=== PATIENT | male | born 1960 | race Caucasian/White ===

== ENCOUNTER 2018-10-16 18:45 | Inpatient (IN) | payer OTHER, MEDICAID ==
[~2018-10-16] VITALS: Ht 177.8 cm; Wt 74.0 kg
[~2018-10-16 18:45] MED LIST: AMLO-145 PO; ATOR40TA68 PO; CLOP75TA27 PO; GEMF600T4 PO; GLIM4TAB PO; LANT3I SC; LEVO125T58 PO; LISI2.5T59 PO; MTF1000T PO
[2018-10-16] MEDS ORDERED: ALBUTEROL 0.083% (NEB) 2.5 MG/3 ML AMP HHN STA (20:32)
[2018-10-16] MEDS ORDERED: SOD CHLORIDE 0.9% 500 ML IV STA (20:32)
[2018-10-16] MEDS ORDERED: IPRATROPIUM (NEB) 0.5 MG/2.5 ML AMP INH ONE (21:00)
[2018-10-16] MEDS ORDERED: SODIUM CHLORIDE 0.9% 1L BAG IV* STA (21:32)
[2018-10-16] MEDS ORDERED: CEFEPIME 2GM/50 ML (PMX) 50 ML IVPB STA (21:32)
[2018-10-16] MEDS ORDERED: VANCOMYCIN 1 GM (PMX) 250 ML IVPB ONE (22:00)
[2018-10-16] MEDS ORDERED: DEXTROSE 50% 50 ML SYRINGE IV PRN ×2 (23:30)
[2018-10-16] MEDS ORDERED: NITROGLYCERIN (SL) 0.4 MG TAB SL PRN (23:30)
[2018-10-16] MEDS ORDERED: DOCUSATE SODIUM 100 MG CAP PO PRN (23:30)
[2018-10-16] MEDS ORDERED: MAGNESIUM HYDROXIDE 30ML CUP PO PRN (23:30)
[2018-10-16] MEDS ORDERED: GLUCOSE GEL 15 GRAM TUBE PO PRN ×2 (23:30)
[2018-10-16] MEDS ORDERED: ONDANSETRON 4 MG INJ IV PRN (23:30)
[2018-10-16] MEDS ORDERED: BISACODYL 10 MG SUPP PR PRN (23:30)
[2018-10-16] MEDS ORDERED: ACETAMINOPHEN 325 MG TAB PO PRN (23:30)
[2018-10-16] MEDS ORDERED: GLUCAGON 1 MG INJ IM PRN (23:30)
[2018-10-16] MEDS ORDERED: NACL 0.9% 3 ML SYG IV SCH (23:30)
[2018-10-16] MEDS ORDERED: HYDROCODONE/APAP (5/325) TAB PO PRN ×2 (23:30)
[2018-10-16] MEDS ORDERED: GLUCOSE GEL 15 GRAM TUBE BUCCAL PRN (23:30)
--- NOTE | 2018-10-16 23:49 | ERD ---
ER Documentation Chief Complaint Chief Complaint WEAKNESS; COUGH AND FEVER [id number] HPI This is a 57-year-old male, with weakness cough and fever for the past 2 weeks. Cough is mildly productive yellow sputum. Denies nausea vomiting. Does complain of fevers and chills. Denies any sick contacts. Denies any other current issues. ROS All systems reviewed and are negative except as per history of present illness. Medications Home Meds Active Scripts Atorvastatin* (Atorvastatin*) 40 Mg Tablet, 40 MG PO QHS, #30 TAB 2 Refills Prov:ANSELMO HAHN MD 03/04/16 Lisinopril* (Lisinopril*) 2.5 Mg Tablet, 2.5 MG PO DAILY, #30 TAB Prov:ANSELMO HAHN MD 03/04/16 Amlodipine Besylate* (Amlodipine Besylate*) 5 Mg Tablet, 5 MG PO DAILY for 30 Days, #30 TAB Prov:ANSELMO HAHN MD 03/04/16 Clopidogrel Bisulfate (Clopidogrel) 75 Mg Tablet, 75 MG PO DAILY for 30 Days, #30 TAB 2 Refills Prov:ANSELMO HAHN MD 03/04/16 Reported Medications Gemfibrozil* (Gemfibrozil*) 600 Mg Tablet, 600 MG PO BID, TAB 03/02/16 Insulin Glargine* (Lantus*) 100 Unit/Ml Soln, 30 UNIT SC BID, #1 VIAL 03/02/16 Levothyroxine Sodium (Levothroid) 125 Mcg Tablet, 125 MCG PO DAILY 10/08/13 Metformin* (Glucophage*) 1,000 Mg Tablet, 1000 MG PO BID 10/08/13 Discontinued Reported Medications Glimepiride* (Glimepiride*) 4 Mg Tablet, 4 MG PO BID 10/08/13 Allergies Allergies: Coded Allergies: No Known Allergy (Unverified , 10/16/18) PMhx/Soc History of Surgery: No Anesthesia Reaction: No Hx Neurological Disorder: Yes (CVA) Hx Respiratory Disorders: No Hx Cardiac Disorders: Yes (HTN, HYPERLIPIDEMIA) Hx Psychiatric Problems: No Hx Miscellaneous Medical Probl: Yes (DM) Hx Alcohol Use: Yes (QUIT 06/2018) Hx Substance Use: No Hx Tobacco Use: Yes (QUIT 2011) Smoking Status: Former smoker Physical Exam Vitals Vital Signs Date Temp Pulse Resp B/P (MAP) Pulse Ox O2 O2 Flow FiO2 Time Delivery Rate 10/16/18 114 24 93 Nasal 3.0 20:50 Cannula 10/16/18 Nasal 3 20:45 Cannula 10/16/18 97.1 84 19 99/62 (74) 91 18:48 Physical Exam Const: No acute distress Head: Atraumatic Eyes: Normal Conjunctiva ENT: Normal External Ears, Nose and Mouth. Neck: Full range of motion. No meningismus. Resp: Clear to auscultation bilaterally Cardio: Regular rate and rhythm, no murmurs Abd: Soft, non tender, non distended. Normal bowel sounds Skin: No petechiae or rashes Back: No midline or flank tenderness Ext: No cyanosis, or edema Neur: Awake and alert Psych: Normal Mood and Affect Result Diagram: 10/16/18210510/16/182105 Results 24 hrs Laboratory Tests Test 10/16/18 21:06 10/16/18 21:15 10/16/18 23:04 White Blood Count 17.3 10^3/ul Red Blood Count 5.00 10^6/ul Hemoglobin 11.9 g/dl Hematocrit 38.2 % Mean Corpuscular Volume 76.4 fl Mean Corpuscular Hemoglobin 23.8 pg Mean Corpuscular 31.2 g/dl Hemoglobin Concent Red Cell Distribution Width 16.2 % Platelet Count 641 10^3/UL Mean Platelet Volume 8.9 fl Immature Granulocytes % 0.400 % Neutrophils % 83.9 % Lymphocytes % 9.2 % Monocytes % 6.0 % Eosinophils % 0.1 % Basophils % 0.4 % Nucleated Red Blood Cells % 0.0 /100WBC Immature Granulocytes # 0.070 10^3/ul Neutrophils # 14.5 10^3/ul Lymphocytes # 1.6 10^3/ul Monocytes # 1.0 10^3/ul Eosinophils # 0.0 10^3/ul Basophils # 0.1 10^3/ul Nucleated Red Blood Cells # 0.0 10^3/ul Sodium Level 140 mmol/L Potassium Level 4.0 mmol/L Chloride Level 97 mmol/L Carbon Dioxide Level 29 mmol/L Anion Gap 14 Blood Urea Nitrogen 13 mg/dl Creatinine 0.93 mg/dl Est Glomerular Filtrat > 60 mL/min Rate mL/min Glucose Level 252 mg/dl Calcium Level 8.9 mg/dl Total Bilirubin 0.5 mg/dl Direct Bilirubin 0.00 mg/dl Indirect Bilirubin 0.5 mg/dl Aspartate Amino 32 IU/L Transf (AST/SGOT) Alanine 34 IU/L Aminotransferase (ALT/SGPT) Alkaline Phosphatase 670 IU/L Troponin I 0.015 ng/ml B-Type Natriuretic Peptide 603 PG/ML Total Protein 7.4 g/dl Albumin 3.5 g/dl Globulin 3.90 g/dl Albumin/Globulin Ratio 0.89 POC Venous Lactate 2.8 mmol/L 1.6 mmol/L Current Medications Medications Dose Sig/Rickey Start Time Status Last (Trade) Ordered Route PRN Stop Time Admin Dose Reason Admin Sodium 500 ml @ Q1H STAT 10/16/18 DC 10/16/18 Chloride 500 mls/hr IV 20:32 20:32 10/16/18 21:31 Albuterol 5 mg ONCE STAT 10/16/18 DC 10/16/18 (Proventil HHN 20:32 20:49 0.083% (Neb)) 10/16/18 20:34 Ipratropium 0.5 mg ONCE ONCE 10/16/18 DC 10/16/18 [place] [facility] 21:00 20:49 (Atrovent 10/16/18 0.02% 21:01 (Neb)) Sodium 2,140 ml BOLUS OVER 2 10/16/18 DC 10/16/18 Chloride HOURS STAT 21:32 21:49 (NS) IV* 10/16/18 21:33 Cefepime HCl 50 ml @ ONCE STAT 10/16/18 DC 10/16/18 100 mls/hr IVPB 21:32 21:48 10/16/18 22:01 Vancomycin 250 ml @ ONCE ONCE 10/16/18 10/16/18 HCl 125 mls/hr IVPB 22:00 22:51 10/16/18 23:59 Amlodipine 5 mg DAILY PO 10/17/18 Besylate 09:00 (Norvasc) 40 mg QHS PO 10/17/18 Atorvastatin 21:00 Calcium (Lipitor) Clopidogrel 75 mg DAILY PO 10/17/18 Bisulfate 09:00 (plaVIX) Gemfibrozil 600 mg BID PO 10/17/18 (Lopid) 09:00 Insulin 30 units BID SC 10/17/18 Glargine 09:00 (Lantus) 125 mcg DAILY PO 10/17/18 Levothyroxine 09:00 Sodium (Synthroid) Lisinopril 2.5 mg DAILY PO 10/17/18 DC (Zestril) 09:00 10/17/18 09:00 Metformin 1,000 mg WITH 10/17/18 HCl BREAKFAST 08:00 (Glucophage) DINNE PO Discontinue ONCE ONCE 10/16/18 DC Miscellaneous current oral XX 23:30 sulfonylur... 10/16/18 Information 23:31 (* Miscellaneous Pharmacy Order) Diagnostic 1 ea 02 XX 10/17/18 Test (Pha) 02:00 (Accu-Chek) Insulin 7 unit WITH MEALS 10/17/18 Aspart SC 08:00 (Novolog Insulin Pen) ONCE ONCE 10/16/18 DC Miscellaneous HYPOGLYCEMIA XX 23:30 PROTOCOL 10/16/18 Information w... 23:31 (* Miscellaneous Pharmacy Order) Insulin NOVOLOG WITH MEALS 10/17/18 Aspart *MODERATE* BEDTIME SC 08:00 (Novolog ALGORITHM Insulin Pen) Discontinue ONCE ONCE 10/16/18 DC Miscellaneous all previ... XX 23:30 10/16/18 Information 23:31 (* Miscellaneous Pharmacy Order) IV Flush 3 ml PER 10/16/18 (NS 3 ml) PROTOCOL IV 23:30 Ondansetron 4 mg Q6H PRN 10/16/18 HCl (Zofran IV NAUSEA 23:30 Inj) AND/OR VOMITING 1 tab Q5M PRN 10/16/18 Nitroglycerin SL CHEST 23:30 PAIN (Nitroglyceri n (Sl Tab) 0.4 Mg) 650 mg Q6H PRN 10/16/18 Acetaminophen PO PAIN 23:30 (Tylenol LEVEL 1-3 OR Tab) FEVER 1 tab Q6H PRN 10/16/18 Acetaminophen PO PAIN 23:30 / LEVEL 4-6 Hydrocodone Bitart ([place] (5/325)) 2 tab Q6H PRN 10/16/18 Acetaminophen PO PAIN 23:30 / LEVEL 7-10 Hydrocodone Bitart ([place] (5/325)) Docusate 100 mg Q12H PRN 10/16/18 Sodium PO 23:30 (Colace) CONSTIPATION Magnesium 30 ml DAILY PRN 10/16/18 Hydroxide PO 23:30 (Milk Of Mag) CONSTIPATION Bisacodyl 10 mg DAILY PRN 10/16/18 (Dulcolax [place] 23:30 Supp) CONSTIPATION Famotidine 20 mg Q12 PO 10/17/18 (Pepcid) 09:00 Enoxaparin 40 mg DAILY SC 10/17/18 Sodium 09:00 (Lovenox) 150 ml @ Q24H IVPB 10/17/18 Levofloxacin/ 100 mls/hr 06:00 Dextrose 1 ea NOTE XX 10/16/18 Miscellaneous 23:30 Information Glucose 15 gm Q15M PRN 10/16/18 (Glutose) PO DECREASED 23:30 GLUCOSE Glucose 22.5 gm Q15M PRN 10/16/18 (Glutose) PO DECREASED 23:30 GLUCOSE Dextrose 25 ml Q15M PRN 10/16/18 (D50w IV DECREASED 23:30 Syringe) GLUCOSE Dextrose 50 ml Q15M PRN 10/16/18 (D50w IV DECREASED 23:30 Syringe) GLUCOSE Glucagon 1 mg Q15M PRN 10/16/18 (Glucagen) IM DECREASED 23:30 GLUCOSE Glucose 15 gm Q15M PRN 10/16/18 (Glutose) BUCCAL 23:30 DECREASED GLUCOSE Procedures/MDM EKG: Rate/Rhythm: [Normal Sinus Rhythm] QRS, ST, T-waves: [No changes consistent w/ acute ischemia] Impression: [No evidence of ischemia or arrhythmia] Chest X-ray 1V Interpreted by me: Soft Tissue: No acute abnor malities Bones: No acute abnormalities Mediastinum/Cardiac Silhouette/Lungs: Right lobar infiltrate Patient's infectious symptoms have not stabilized and the patient is at risk of rapid decompensation. The patient will be admitted for careful hydration, antibiotic therapy, and infectious source control. Severe Sepsis Assessment: Infectious Source: Pneumonia End organ damage indicated by: [Lactate > 2.0 mmol/L Severe Sepsis Managment: Blood Cultures X 2 before broad spectrum antibiotics initiated within 3 hours of recognition, which was recognized at room placement arrival 30 ml/kg NS bolus Completed Initial Lactate: 2.7 Repeat Lactate pending Critical Care: Time: 44 minutes, independent of any separately billable procedural time Treatments/Evaluations: Emergent fluid management, while maintaining close respiratory support. Immediate broad spectrum antibiotic therapy. Simultaneous assessment for possible sources in order to direct therapy. Consideration for invasive and chemical support to prevent respiratory or cardiac collapse. Septic Shock Assessment (1 hour post 30 ml/kg fluid bolus): Hypotension (SBP < 90 or 40 mmHg drop, MAP < 65): [No] Lactic acid > 4.0 [No] Perfusion Reassessment for Septic Shock: Vital signs are stable Heart Exam: [Tachycardic] Lung Exam: [No Crackles] Capillary Refill: [Delayed] Peripheral Pulses: [Radially present] Skin: [Mottled, pale] Accepting Care Team: Current data and ongoing care discussed. Time: 10 PM Primary Provider: IPA physician Consulting: Deferred to inpatient team Outstanding Data: none Departure Diagnosis: Primary Impression: Sepsis Sepsis type: sepsis due to unspecified organism Qualified Codes: A41.9 - Sepsis, unspecified organism Condition: Serious GABRIELLA STEPHENS Oct 16, 2018 23:49
[2018-10-17] VITALS (11 sets, daily range): BP systolic 115–157; BP diastolic 69–80; PULSE 90–104; RESP 19–20; Ht 177.8 cm; Wt 74.0 kg
[2018-10-17] MEDS: ACCU-CHEK XX SCH (02:00)
[2018-10-17] MEDS: LEVOFLOXACIN 750MG/D5W (PMX) 150 ML IVPB SCH (05:55)
--- NOTE | 2018-10-17 06:43 | NUR ---
END OF THE SHIFT:NEWLY ADMITTED AA,O X 4 PATIENT,COOPERATIVE.SR IS ON THE MONITOR.VS-WNL,NO FEVER DURING THE SHIFT.CONTINUE ANTIBIOTIC MANAGEMENT.
[2018-10-17] MEDS: INSULIN ASPART [NOVOLOG] 3 ML PEN SC SCH ×7 (07:49→20:48)
[2018-10-17] MEDS: metFORMIN 500 MG TAB PO SCH ×2 (08:01→17:26)
[2018-10-17] MEDS: INSULIN GLARGINE [LANTus] (100 UNITS/ML) SYG SC SCH ×2 (08:49→21:00)
[2018-10-17] MEDS: GEMFIBROZIL 600 MG TAB PO SCH ×2 (08:55→20:48)
[2018-10-17] MEDS: LEVOTHYROXINE 125 MCG TAB PO SCH (08:55)
[2018-10-17] MEDS: FAMOTIDINE 20 MG TAB PO SCH ×2 (08:55→20:48)
[2018-10-17] MEDS: CLOPIDOGREL 75 MG TAB PO SCH (08:55)
[2018-10-17] MEDS: AMLODIPINE 5 MG TAB PO SCH (08:56)
[2018-10-17] MEDS ORDERED: LISINOPRIL 5 MG TAB PO SCH (09:00)
[2018-10-17] MEDS: ENOXAPARIN 40 MG/0.4 ML SYG SC SCH (09:00)
[2018-10-17] MEDS ORDERED: INFLUENZA VIRUS VACCINE 0.5 ML (DISPENSING) IM* ONE (09:00)
--- NOTE | 2018-10-17 11:37 | HP ---
Date/Time of Note Date/Time of Note DATE: 10/17/18 TIME: 11:09 Assessment/Plan VTE Prophylaxis SCD applied (from Nsg): No SCD contraindicated: low risk/ambulating Pharmacological prophylaxis: LMWH Lines/Catheters IV Catheter Type (from Nrs): [place] Lock Urinary Cath still in place: No Assessment/Plan Assessment/Plan 57-year-old male with: 1. Community-acquired pneumonia, failed conservative management as an outpatient, likely bacterial given green sputum and elevated WBC along with fevers. Patient started on Levaquin as of this morning, WBC trending down. Low-grade fever this morning, tachycardia resolving. Respiratory status stable. Will monitor another 24 hours and if patient remains stable and blood cultures negative, discharge home on 5 days of Levaquin. 2. Hypertension: Continue current medications 3. Old CVAs, known multi-vessel intracranial arterial disease, currently with no deficits although patient reports sometimes has memory issues. He is again advised to remain compliant on antiplatelet therapy, supposed to be on aspirin and Plavix. 4. Hyperlipidemia: Continue statin therapy 5. Diabetes mellitus, insulin requiring, still poorly controlled with A1c of 10.8. Will adjust his current regimen as needed. ADA diet. 6. Anemia, chronic, microcytic: Check iron panel, monitor H&H. No signs of acute bleeding. Prophylaxis: Lovenox for DVT prophylaxis, tolerating p.o. well. Will put on probiotics. Disposition: Treated for community-acquired pneumonia, discharge planning in the next 24 hours is remained stable. Result Diagram: 10/17/18 1008 10/17/18 1008 Results 24hrs Laboratory Tests Test 10/16/18 21:06 10/16/18 21:15 10/16/18 23:04 10/17/18 00:17 White Blood 17.3 #H Count Red Blood Count 5.00 Hemoglobin 11.9 #L Hematocrit 38.2 L Mean Corpuscular 76.4 L Volume Mean Corpuscular 23.8 #L Hemoglobin Mean Corpuscular 31.2 L Hemoglobin Rossy nt Red Cell 16.2 #H Distribution Width Platelet Count 641 H Mean Platelet 8.9 Volume Immature 0.400 Granulocytes % Neutrophils % 83.9 H Lymphocytes % 9.2 L Monocytes % 6.0 Eosinophils % 0.1 Basophils % 0.4 Nucleated Red 0.0 Blood Cells % Immature 0.070 H Granulocytes # Neutrophils # 14.5 H Lymphocytes # 1.6 Monocytes # 1.0 H Eosinophils # 0.0 Basophils # 0.1 Nucleated Red 0.0 Blood Cells # Sodium Level 140 Potassium Level 4.0 Chloride Level 97 Carbon Dioxide 29 Level Anion Gap 14 H Blood Urea 13 Nitrogen Creatinine 0.93 Est Glomerular > 60 Filtrat Rate mL/min Glucose Level 252 H Calcium Level 8.9 Total Bilirubin 0.5 Direct Bilirubin 0.00 Indirect 0.5 Bilirubin Aspartate Amino 32 Transf (AST/SGOT ) Alanine 34 Aminotransferase (ALT/SGPT) Alkaline 670 H Phosphatase Troponin I 0.015 B-Type 603 H Natriuretic Peptide Total Protein 7.4 Albumin 3.5 Globulin 3.90 H Albumin/Globulin 0.89 Ratio POC Venous 2.8 *H 1.6 Lactate Lactic Acid 1.5 Level Test 10/17/18 01:11 10/17/18 07:45 10/17/18 10:08 Bedside Glucose 234 H 234 H White Blood 11.3 #H Count Red Blood Count 3.72 #L Hemoglobin 8.9 #L Hematocrit 28.1 #L Mean Corpuscular 75.5 L Volume Mean Corpuscular 23.9 L Hemoglobin Mean Corpuscular 31.7 L Hemoglobin Rossy nt Red Cell 16.1 H Distribution Width Platelet Count 471 #H Mean Platelet 8.9 Volume Immature 0.400 Granulocytes % Neutrophils % 81.2 H Lymphocytes % 10.4 L Monocytes % 7.1 Eosinophils % 0.5 Basophils % 0.4 Nucleated Red 0.0 Blood Cells % Immature 0.040 H Granulocytes # Neutrophils # 9.2 H Lymphocytes # 1.2 Monocytes # 0.8 Eosinophils # 0.1 Basophils # 0.0 Nucleated Red 0.0 Blood Cells # Sodium Level 138 Potassium Level 3.8 Chloride Level 105 Carbon Dioxide 25 Level Anion Gap 8 Blood Urea 8 Nitrogen Creatinine 0.59 L Est Glomerular > 60 Filtrat Rate mL/min Glucose Level 250 H Calcium Level 7.8 L Magnesium Level 1.9 HPI/ROS Admit Date/Time Admit Date/Time Oct 16, 2018 at 22:04 Hx of Present Illness Chief complaint: Cough, fevers, chills for 2 weeks History of presenting illness: This is a 57-year-old male with diabetes mellitus, previous CVAs, severe peripheral vascular disease and intracranial arterial disease, hypertension who presented the emergency department with complaints of 2 weeks of cough that became productive with green sputum. Also reports fevers and chills at home. He took [id number] medication with no improvement of his symptoms therefore came to the emergency department yesterday evening. He was found to be febrile, tachycardic with a slightly elevated lactic acid at 2.1. Chest x-ray did show right sided pneumonia. Patient is not hypoxic or tachypneic. He was admitted to telemetry for close monitoring due to tachycardia and elevated lactic acid. He was given a dose of cefepime and vancomycin in the ER. He started on Levaquin this morning. WBC is trending down. He did have a low-grade fever this morning. He is currently afebrile. Patient is being monitored today, additional IV antibiotics will be given and to hopefully discharge planning home in the next 24 hours if remains hemodynamically stable. Patient denies any history of coronary artery disease but does have a significant disease of cerebrovascular disease with intracranial arterial disease, at least 3 old CVA that he knows of. Noncompliance with antiplatelets. Uncontrolled diabetes mellitus with A1c of 10.8. He claims he does check his blood sugars and does. Attention to his diet. He denies any chest pains or shortness of breath. ROS Constitutional: improved, chills, febrile Eyes: no complaints ENT: no complaints Respiratory: cough, shortness of breath, sputum (Green) Cardiovascular: no complaints Gastrointestinal: no complaints Genitourinary: no complaints Musculoskeletal: no complaints Skin: no complaints Neurologic: no complaints Endocrine: no complaints Lymphatic: no complaints Psychological: no complaints Immunologic: no complaints PMH/Family/Social Past Medical History 1. Old CVAs, last 2015 with known multi-intracranial arterial disease 2. PVD/PAD, with known multi-intracranial arterial disease 3. Diabetes mellitus, insulin requiring. 4. Hypertension. 5. Dyslipidemia. Medications Current Medications Amlodipine Besylate (Norvasc) 5 mg DAILY PO Last administered on 10/17/18at 08:56; Admin Dose 5 MG; Start 10/17/18 at 09:00 Atorvastatin Calcium (Lipitor) 40 mg QHS PO ; Start 10/17/18 at 21:00 Clopidogrel Bisulfate (plaVIX) 75 mg DAILY PO Last administered on 10/17/18at 08:55; Admin Dose 75 MG; Start 10/17/18 at 09:00 Gemfibrozil (Lopid) 600 mg BID PO Last administered on 10/17/18 08:55; Admin Dose 600 MG; Start 10/17/18 at 09:00 Insulin Glargine (Lantus) 30 units BID SC Last administered on 10/17/18at 0 8:49; Admin Dose 30 UNITS; Start 10/17/18 at 09:00 Levothyroxine Sodium (Synthroid) 125 mcg DAILY PO Last administered on 10/17/18at 08:55; Admin Dose 125 MCG; Start 10/17/18 at 09:00 Metformin HCl (Glucophage) 1,000 mg WITH BREAKFAST DINNE PO Last administered on 10/17/18 08:01; Admin Dose 1,000 MG; Start 10/17/18 at 08:00 Diagnostic Test (Pha) (Accu-Chek) 1 ea 02 XX Last administered on 10/17/18at 02:00; Admin Dose 1 EA; Start 10/17/18 at 02:00 Insulin Aspart (Novolog Insulin Pen) 7 unit WITH MEALS SC Last administered on 10/17/18at 08:06; Admin Dose 7 UNIT; Start 10/17/18 at 08:00 Insulin Aspart (Novolog Insulin Pen) NOVOLOG *MODERATE* ALGORITHM WITH MEALS BEDTIME SC Last administered on 10/17/18at 07:49; Admin Dose 6 UNIT; Start 10/17/18 at 08:00 IV Flush (NS 3 ml) 3 ml PER PROTOCOL IV ; Start 10/16/18 at 23:30 Ondansetron HCl (Zofran Inj) 4 mg Q6H PRN IV NAUSEA AND/OR VOMITING; Start 10/16/18 at 23:30 Nitroglycerin (Nitroglycerin (Sl Tab) 0.4 Mg) 1 tab Q5M PRN SL CHEST PAIN; Start 10/16/18 at 23:30 Acetaminophen (Tylenol Tab) 650 mg Q6H PRN PO PAIN LEVEL 1-3 OR FEVER; Start 10/16/18 at 23:30 Acetaminophen/ Hydrocodone Bitart ([place] (5/325)) 1 tab Q6H PRN PO PAIN LEVEL 4-6; Start 10/16/18 at 23:30 Acetaminophen/ Hydrocodone Bitart ([place] (5/325)) 2 tab Q6H PRN PO PAIN LEVEL 7-10; Start 10/16/18 at 23:30 Docusate Sodium (Colace) 100 mg Q12H PRN PO CONSTIPATION; Start 10/16/18 at 23:30 Magnesium Hydroxide (Milk Of Mag) 30 ml DAILY PRN PO CONSTIPATION; Start 10/16/18 at 23:30 Bisacodyl (Dulcolax Supp) 10 mg DAILY PRN [place] CONSTIPATION; Start 10/16/18 at 23:30 Famotidine (Pepcid) 20 mg Q12 PO Last administered on 10/17/18at 08:55; Admin Dose 20 MG; Start 10/17/18 at 09:00 Enoxaparin Sodium (Lovenox) 40 mg DAILY SC Last administered on 10/17/18at 09:00; Admin Dose 40 MG; Start 10/17/18 at 09:00 Levofloxacin/ Dextrose 150 ml @ 100 mls/hr Q24H IVPB Last administered on 10/17/18at 05:55; Admin Dose 100 MLS/HR; Start 10/17/18 at 06:00 Miscellaneous Information 1 ea NOTE XX ; Start 10/16/18 at 23:30 Glucose (Glutose) 15 gm Q15M PRN PO DECREASED GLUCOSE; Start 10/16/18 at 23:30 Glucose (Glutose) 22.5 gm Q15M PRN PO DECREASED GLUCOSE; Start 10/16/18 at 23:30 Dextrose (D50w Syringe) 25 ml Q15M PRN IV DECREASED GLUCOSE; Start 10/16/18 at 23:30 Dextrose (D50w Syringe) 50 ml Q15M PRN IV DECREASED GLUCOSE; Start 10/16/18 at 23:30 Glucagon (Glucagen) 1 mg Q15M PRN IM DECREASED GLUCOSE; Start 10/16/18 at 23:30 Glucose (Glutose) 15 gm Q15M PRN BUCCAL DECREASED GLUCOSE; Start 10/16/18 at 23:30 Coded Allergies: No Known Allergy (Unverified , 10/16/18) Past Surgical History Past Surgical Hx: no surgical history Family History Significant Family History: no pertinent family hx Social History Alcohol Use: other (Former heavy drinker, quit 8 months ago) Smoking Status: Former smoker (Former heavy smoker, 2 packs a day for approximately 20 years, he quit 12 years ago.) Exam/Review of Systems Vital Signs Vitals Vital Signs Date Temp Pulse Resp B/P (MAP) Pulse Ox O2 O2 Flow FiO2 Time Delivery Rate 10/17/18 104 08:56 10/17/18 100.6 20 125/69 95 07:45 (87) 10/17/18 Room Air 04:06 10/17/18 2.0 01:05 Intake and Output 10/16/18 10/16/18 10/17/18 1515:00 23:00 07:00 IntakeIntake Total 650 ml BalanceBalance 650 ml Exam Constitutional: alert, oriented, well developed Respiratory: clear to auscultation, normal air movement Cardiovascular: regular rate and rhythm, nl pulses Gastrointestinal: soft, non-tender Musculoskeletal: nl extremities to inspection, nl gait and stance Extremities: normal pulses, other (No edema, clubbing or cyanosis) Neurological: SALES EXEC II-XII intact, nl mental status, nl speech, nl strength Additional Comments PROCEDURE: XR Chest. CLINICAL INDICATION: Shortness of breath TECHNIQUE: Single frontal view of the chest was obtained COMPARISON: 03/02/16 FINDINGS: The heart and mediastinum are within normal limits. There is right perihilar and right lower lobe consolidation. There is right pleural thickening and small right pleural effusion. There is mild elevation of the right diaphragm. There is no pneumothorax. RPTAT: AA IMPRESSION: Right perihilar and right lower lobe consolidation. Right pleural thickening and small right pleural effusion. .Oni Humphries MD, MD Date Time Electronically viewed and signed by .Oni Humphries MD, on 10/16/2018 21:13 .S/ CC: GABRIELLA STEPHENS N'DEYE F Oct 17, 2018 11:19
[2018-10-17] MEDS: ASPIRIN (EC) 81 MG TAB PO SCH (12:21)
[2018-10-17] MEDS: LACTOBACILLUS RHAMNOSUS CAP PO SCH ×2 (13:54→20:48)
[2018-10-17] MEDS ORDERED: ATORVASTATIN 40 MG TAB PO SCH (21:00)
[2018-10-18] VITALS (9 sets, daily range): BP systolic 102–126; BP diastolic 62–75; PULSE 80–98; RESP 16–20
[2018-10-18] MEDS: ACCU-CHEK XX SCH (01:24)
[2018-10-18] MEDS: LEVOFLOXACIN 750MG/D5W (PMX) 150 ML IVPB SCH (05:02)
--- NOTE | 2018-10-18 06:04 | NUR ---
END OF THE SHIFT:PT. IS AA,O X 4.1 EPISODE OF ASYMPTOMATIC HYPOGLYCEMIA(BG=69) RESOLVED(FOLLOW HYPOGLYCEMIC PROTOCOL.MD NOTIFIED-INSULIN TREATMENTS ADJUSTED.LOW GRADE FEVER DURING THE SHIFT MD NOTIFIED,TYLENOL X 1 GIVEN.CONTINUE ANTIBIOTIC MANAGEMENT.
[2018-10-18] MEDS: metFORMIN 500 MG TAB PO SCH ×2 (07:43→17:42)
[2018-10-18] MEDS: INSULIN ASPART [NOVOLOG] 3 ML PEN SC SCH ×3 (07:49→17:42)
[2018-10-18] MEDS ORDERED: INSULIN GLARGINE [LANTus] (100 UNITS/ML) SYG SC SCH (08:00)
[2018-10-18] MEDS: LEVOTHYROXINE 125 MCG TAB PO SCH (08:32)
[2018-10-18] MEDS: CLOPIDOGREL 75 MG TAB PO SCH (08:32)
[2018-10-18] MEDS: LACTOBACILLUS RHAMNOSUS CAP PO SCH (08:32)
[2018-10-18] MEDS: FAMOTIDINE 20 MG TAB PO SCH (08:32)
[2018-10-18] MEDS: ASPIRIN (EC) 81 MG TAB PO SCH (08:33)
[2018-10-18] MEDS: AMLODIPINE 5 MG TAB PO SCH (08:33)
[2018-10-18] MEDS: GEMFIBROZIL 600 MG TAB PO SCH (08:33)
[2018-10-18] MEDS: ENOXAPARIN 40 MG/0.4 ML SYG SC SCH (08:38)
--- NOTE | 2018-10-18 11:40 | PN ---
Date/Time of Note Date/Time of Note DATE: 10/18/18 TIME: 11:23 Assessment/Plan VTE Prophylaxis Risk score (from Ns)>0 risk: 2 SCD applied (from [facility]): No SCD contraindicated: low risk/ambulating Pharmacological prophylaxis: NA/contraindicated Pharm contraindication: low risk/ambulating Lines/Catheters IV C[facility]ter Type [facility]from [facility] Saline Lock Urinary Cath still in place: No Assessment/Plan Assessment/Plan 57 yo male with: 1. Community-acquired pneumonia, failed conservative management as an outpatient, likely bacterial given green sputum and elevated WBC along with fevers. On Levaquin, WBC trended down to normal today Low-grade fever overnight again but fever curve trending down, tachycardia resolved. On room air and comfortable. Leukocytosis also resolved. Will monitor throughout the day, if afebrile by the end of the afternoon, he was discharged home on oral Levaquin for 5 more days. 2. Hypertension: Continue current medications 3. Old CVAs, known multi-vessel intracranial arterial disease, currently with no deficits although patient reports sometimes has memory issues. He is again advised to remain compliant on antiplatelet therapy, supposed to be on aspirin and Plavix. 4. Hyperlipidemia: Continue statin therapy 5. Diabetes mellitus, insulin requiring, still poorly controlled with A1c of 10.8. Much better control, agree with dosing Lantus once a day 30 units every morning, patient can continue his metformin and resume his glipizide at home. Carbohydrate controlled diet. 6. Anemia, chronic, microcytic: Check iron panel, monitor H&H. No signs of acute bleeding. Prophylaxis: Lovenox for DVT prophylaxis, tolerating p.o. well. On probiotics. Disposition: Community-acquired pneumonia, discharge planning later today if remains afebrile. Result Diagram: 10/18/18 0513 10/18/18 0513 Results 24hrs Laboratory Tests Test 10/17/18 11:59 10/17/18 17:24 10/17/18 20:41 10/17/18 20:56 Bedside Glucose 204 78 69 L 74 Test 10/17/18 21:09 10/18/18 05:13 10/18/18 07:42 Bedside Glucose 80 154 White Blood 10.5 Count Red Blood Count 3.72 L Hemoglobin 8.9 L Hematocrit 28.4 L Mean Corpuscular 76.3 L Volume Mean Corpuscular 23.9 L Hemoglobin Mean Corpuscular 31.3 L Hemoglobin Rossy nt Red Cell 16.2 H Distribution Width Platelet Count 496 H Mean Platelet 9.0 Volume Immature 0.500 H Granulocytes % Neutrophils % 71.8 Lymphocytes % 16.2 Monocytes % 9.9 Eosinophils % 1.3 Basophils % 0.3 Nucleated Red 0.0 Blood Cells % Immature 0.050 H Granulocytes # Neutrophils # 7.6 H Lymphocytes # 1.7 Monocytes # 1.0 H Eosinophils # 0.1 Basophils # 0.0 Nucleated Red 0.0 Blood Cells # Sodium Level 137 Potassium Level 3.7 Chloride Level 102 Carbon Dioxide 28 Level Anion Gap 7 Blood Urea 7 Nitrogen Creatinine 0.67 Est Glomerular > 60 Filtrat Rate mL/min Glucose Level 117 # Calcium Level 8.4 Magnesium Level 1.9 Subjective 24 Hr Interval Summary Free Text/Dictation Patient doing well this morning, WBC down to normal. On room air and tachycardia resolved. However he did have a fever overnight around 2 AM to 101.1. Patient very eager to go home, will monitor throughout the day, if remain afebrile discharge home this afternoon/evening. If fever he will have to stay overnight. Exam/Review of Systems Vital Signs Vitals Vital Signs Date Temp Pulse Resp B/P (MAP) Pulse Ox O2 O2 Flow FiO2 Time Delivery Rate 10/18/18 92 08:36 10/18/18 Nasal 2.0 08:00 Cannula 10/18/18 98.2 16 109/68 95 07:33 (82) Intake and Output 10/17/18 10/17/18 10/18/18 1515:00 23:00 07:00 IntakeIntake Total 360 ml 400 ml 600 ml OutputOutput Total 1100 ml 1150 ml BalanceBalance 360 ml -700 ml -550 ml Exam Constitutional: alert, oriented, well developed Respiratory: clear to auscultation, normal air movement Cardiovascular: regular rate and rhythm, nl pulses Gastrointestinal: soft, non-tender Musculoskeletal: nl extremities to inspection Extremities: normal pulses, other (No edema, clubbing or cyanosis) Neurological: CROCHETER II-XII intact, nl mental status, nl speech, nl strength Medications Medications Current Medications Amlodipine Besylate (Norvasc) 5 mg DAILY PO Last administered on 10/18/18at 08:33; Admin Dose 5 MG; Start 10/17/18 at 09:00 Atorvastatin Calcium (Lipitor) 40 mg QHS PO Last administered on 10/17/18at 20 :48; Admin Dose 40 MG; Start 10/17/18 at 21:00 Clopidogrel Bisulfate (plaVIX) 75 mg DAILY PO Last administered on 10/18/18 08:32; Admin Dose 75 MG; Start 10/17/18 at 09:00 Gemfibrozil (Lopid) 600 mg BID PO Last administered on 10/18/18 08:33; Admin Dose 600 MG; Start 10/17/18 at 09:00 Levothyroxine Sodium (Synthroid) 125 mcg DAILY PO Last administered on 10/18/18 08:32; Admin Dose 125 MCG; Start 10/17/18 at 09:00 Metformin HCl (Glucophage) 1,000 mg WITH BREAKFAST DINNE PO Last administered on 10/18/18 07:43; Admin Dose 1,000 MG; Start 10/17/18 at 08:00 Diagnostic Test (Pha) (Accu-Chek) 1 ea 02 XX Last administered on 10/17/18at 02:00; Admin Dose 1 EA; Start 10/17/18 at 02:00 Insulin Aspart (Novolog Insulin Pen) NOVOLOG *MODERATE* ALGORITHM WITH MEALS BEDTIME SC Last administered on 10/18/18 07:49; Admin Dose 2 UNIT; Start 10/17/18 at 08:00 IV Flush (NS 3 ml) 3 ml PER PROTOCOL IV ; Start 10/16/18 at 23:30 Ondansetron HCl (Zofran Inj) 4 mg Q6H PRN IV NAUSEA AND/OR VOMITING; Start 10/16/18 at 23:30 Nitroglycerin (Nitroglycerin (Sl Tab) 0.4 Mg) 1 tab Q5M PRN SL CHEST PAIN; Start 10/16/18 at 23:30 Acetaminophen (Tylenol Tab) 650 mg Q6H PRN PO PAIN LEVEL 1-3 OR FEVER Last administered on 10/18/18at 01:30; Admin Dose 650 MG; Start 10/16/18 at 23:30 Acetaminophen/ Hydrocodone Bitart ([place] (5/325)) 1 tab Q6H PRN PO PAIN LEVEL 4-6; Start 10/16/18 at 23:30 Acetaminophen/ Hydrocodone Bitart ([place] (5/325)) 2 tab Q6H PRN PO PAIN LEVEL 7-10; Start 10/16/18 at 23:30 Docusate Sodium (Colace) 100 mg Q12H PRN PO CONSTIPATION; Start 10/16/18 at 23:30 Magnesium Hydroxide (Milk Of Mag) 30 ml DAILY PRN PO CONSTIPATION; Start 10/16/18 at 23:30 Bisacodyl (Dulcolax Supp) 10 mg DAILY PRN NC CONSTIPATION; Start 10/16/18 at 23:30 Famotidine (Pepcid) 20 mg Q12 PO Last administered on 10/18/18at 08:32; Admin Dose 20 MG; Start 10/17/18 at 09:00 Enoxaparin Sodium (Lovenox) 40 mg DAILY SC Last administered on 10/18/18at 08:38; Admin Dose 40 MG; Start 10/17/18 at 09:00 Levofloxacin/ Dextrose 150 ml @ 100 mls/hr Q24H IVPB Last administered on 10/18/18at 05:02; Admin Dose 100 MLS/HR; Start 10/17/18 at 06:00 Miscellaneous Information 1 ea NOTE XX ; Start 10/16/18 at 23:30 Glucose (Glutose) 15 gm Q15M PRN PO DECREASED GLUCOSE; Start 10/16/18 at 23:30 Glucose (Glutose) 22.5 gm Q15M PRN PO DECREASED GLUCOSE; Start 10/16/18 at 23:30 Dextrose (D50w Syringe) 25 ml Q15M PRN IV DECREASED GLUCOSE; Start 10/16/18 at 23:30 Dextrose (D50w Syringe) 50 ml Q15M PRN IV DECREASED GLUCOSE; Start 10/16/18 at 23:30 Glucagon (Glucagen) 1 mg Q15M PRN IM DECREASED GLUCOSE; Start 10/16/18 at 23:30 Glucose (Glutose) 15 gm Q15M PRN BUCCAL DECREASED GLUCOSE; Start 10/16/18 at 23:30 Aspirin (Halfprin) 81 mg DAILY PO Last administered on 10/18/18at 08:33; Admin Dose 81 MG; Start 10/17/18 at 12:30 Lactobacillus Acidophilus/ Rhamnosus (Culturelle) 1 cap BID PO Last administered on 10/18/18at 08:32; Admin Dose 1 CAP; Start 12/26/18 at 12:30 Insulin Glargine (Lantus) 30 units DAILY@0800 SC Last administered on 10/18/18at 07:50; Admin Dose 30 UNITS; Start 10/18/18 at 08:00 NICK HARDING Oct 18, 2018 11:34
--- NOTE | 2018-10-18 11:41 | PDOCDIS ---
Discharge Instructions CONDITION [id number] Patient Condition: [id number] Stable HOME CARE INSTRUCTIONS: [id number] Special Diet: [id number] diabetic ACTIVITY: [id number] Activity Restrictions: [id number] No Restrictions FOLLOW UP/APPOINTMENTS Follow-up Plan Follow up with PCP within 1 week NICK HARDING Oct 18, 2018 11:41
[2018-10-18] MEDS ORDERED: LANT3I SC (11:44)
[2018-10-18] MEDS ORDERED: ASPI-1044 PO (11:44)
[2018-10-18] MEDS ORDERED: LACT1CAP28 PO (11:44)
[2018-10-18] MEDS ORDERED: LEVO750T8 PO (11:47)
--- NOTE | 2018-10-18 19:56 | NUR ---
discharged to home with [email or web address] the whole day today.
--- NOTE | 2018-10-19 16:22 | DS ---
Date/Time of Note Date/Time of Note DATE: 10/19/18 TIME: 16:18 Discharge Summary Admission/Discharge Info Admit Date/Time Oct 16, 2018 at 22:04 Discharge Date/Time Oct 18, 2018 at 19:50 Discharge Diagnosis 1. Community-acquired pneumonia 2. Hypertension 3. Old CVAs, known multi-vessel intracranial arterial disease 4. Hyperlipidemia 5. Diabetes mellitus, insulin requiring, 6. Anemia, chronic, microcytic Patient Condition: Stable Consults none Procedures none Hx of Present Illness Chief complaint: Cough, fevers, chills for 2 weeks History of presenting illness: This is a 57-year-old male with diabetes mellitus, previous CVAs, severe peripheral vascular disease and intracranial arterial disease, hypertension who presented the emergency department with complaints of 2 weeks of cough that became productive with green sputum. Also reports fevers and chills at home. He took [id number] medication with no improvement of his symptoms therefore came to the emergency department yesterday evening. He was found to be febrile, tachycardic with a slightly elevated lactic acid at 2.1. Chest x-ray did show right sided pneumonia. Patient is not hypoxic or tachypneic. He was admitted to telemetry for close monitoring due to tachycardia and elevated lactic acid. He was given a dose of cefepime and vancomycin in the ER. He started on Levaquin this morning. WBC is trending down. He did have a low-grade fever this morning. He is currently afebrile. Patient is being monitored today, additional IV antibiotics will be given and to hopefully discharge planning home in the next 24 hours if remains hemodynamically stable. Patient denies any history of coronary artery disease but does have a significant disease of cerebrovascular disease with intracranial arterial disease, at least 3 old CVA that he knows of. Noncompliance with antiplatelets. Uncontrolled diabetes mellitus with A1c of 10.8. He claims he does check his blood sugars and does. Attention to his diet. He denies any chest pains or shortness of breath. Hospital Course Patient was given vancomycin and cefepime in the emergency department, subsequently maintained on Levaquin, WBC trended down to normal. He became afebrile and after 48 hours of IV antibiotics was discharged home on oral Levaquin for 5 more days to complete a total of 7-day course. Patient was discharged in stable condition and afebrile at the time of discharge. No respiratory distress at the time of discharge. Home Meds Active Scripts Levofloxacin* (Levofloxacin*) 750 Mg Tablet, 750 MG PO DAILY for 5 Days, TAB Start on Friday 10/19 Prov:NICK HARDING 10/18/18 Aspirin Delayed Release (Aspirin Delayed Release) 81 Mg Tablet.dr, 81 MG PO DAILY for 30 Days, 3 Refills Prov:NICK HARDING 10/18/18 Lactobacillus Rhamnosus GG (Culturelle) 1 Each Capsule, 1 CAP PO BID for 14 Days, CAP Prov:NICK HARDING 10/18/18 Insulin Glargine* (Lantus*) 100 Unit/Ml Soln, 30 UNIT SC DAILY, #1 VIAL 3 Refills Prov:NICK HARDING 10/18/18 Atorvastatin* (Atorvastatin*) 40 Mg Tablet, 40 MG PO QHS, #30 TAB 2 Refills Prov:ANSELMO HAHN MD 03/04/16 Lisinopril* (Lisinopril*) 2.5 Mg Tablet, 2.5 MG PO DAILY, #30 TAB Prov:ANSELMO HAHN MD 03/04/16 Amlodipine Besylate* (Amlodipine Besylate*) 5 Mg Tablet, 5 MG PO DAILY for 30 Days, #30 TAB Prov:ANSELMO HAHN MD 03/04/16 Clopidogrel Bisulfate (Clopidogrel) 75 Mg Tablet, 75 MG PO DAILY for 30 Days, #30 TAB 2 Refills Prov:ANSELMO HAHN MD 03/04/16 Reported Medications Gemfibrozil* (Gemfibrozil*) 600 Mg Tablet, 600 MG PO BID, TAB 03/02/16 Levothyroxine Sodium (Levothroid) 125 Mcg Tablet, 125 MCG PO DAILY 10/08/13 Metformin* (Glucophage*) 1,000 Mg Tablet, 1000 MG PO BID 10/08/13 Discontinued Reported Medications Glimepiride* (Glimepiride*) 4 Mg Tablet, 4 MG PO BID 10/08/13 Follow-up Plan Follow up with PCP within 1 week Primary Care Provider Not On Staff Doctor Time spent on discharge: > 30 minutes Pending Labs Laboratory Tests Test 10/18/18 17:41 Bedside Glucose 113 mg/dL (70-220) NICK HARDING Oct 19, 2018 16:22
== END 2018-10-18 19:50 | disposition home or self-care (01) | DRG 871 ==
LOC: E/R 18:45 → 6WM 22:04 → E/R 10-17 00:44
PROVIDERS: ADMIT Internal Medicine; ATTEND Internal Medicine
DX: A41.9 Sepsis, unspecified organism (principal); J18.9 Pneumonia, unspecified organism; D50.9 Iron deficiency anemia, unspecified; I10 Essential (primary) hypertension; E78.5 Hyperlipidemia, unspecified; Z79.4 Long term (current) use of insulin; Z86.73 Personal history of transient ischemic attack (TIA), and cerebral infarction without residual deficits; E11.51 Type 2 diabetes mellitus with diabetic peripheral angiopathy without gangrene; I67.9 Cerebrovascular disease, unspecified; Z87.891 Personal history of nicotine dependence
CPT/HCPCS: 36415; 71045; 80048; 80053; 82728; 82962; 83036; 83540; 83605; 83735; 83880; 84484; 85025; 87040; 87400; 90686; 94664; 96374; J0692; J1650; J1815; J1956; J3370; J7030; J7040